=== PATIENT | male | born 1980 | race Hispanic/Latino ===

== ENCOUNTER → 2018-12-10 | Outpatient (CLI) | payer OTHER ==
[2018-12-10 12:52] LABS: INR 1.02; PROTHROMBIN TIME 13.5 SECONDS (12.1-14.4)
[2018-12-10 12:53] LABS: PARTIAL THROMBOPLASTIN TIME 27.2 SECONDS (25.4-37.6)
== END ==
LOC: M LAB 12:05
PROVIDERS: ATTEND Physician Assistant
DX: Z01.812 Encounter for preprocedural laboratory examination (principal)

== ENCOUNTER → 2019-11-15 | Outpatient (CLI) | payer OTHER | LOC: M LABSMTC 10:57 | PROVIDERS: ATTEND Physical Medicine & Rehabilitation | DX: Z03.818 Encounter for observation for suspected exposure to other biological agents ruled out (principal); Z11.59 Encounter for screening for other viral diseases ==

== ENCOUNTER → 2020-08-28 | Outpatient (CLI) | payer OTHER ==
--- NOTE | 2020-09-03 13:24 | ECHO ---
DATE OF PROCEDURE: 08/28/2020 Age: 39 Gender: Male Height: 178 cm Weight: 104 kg REFERRING PHYSICIAN: Travis Watts M.D. INDICATION: Ventricular premature depolarizations. MEASUREMENTS: 2D Measurements: Intraventricular septum 0.82 cm Posterior wall 1.06 cm Left ventricle diastole 5.2 cm Aortic root 3.0 cm Left atrium 4.3 cm Left atrial volume index 21 cm Inferior vena cava 1.7 cm with normal respiratory variation Doppler Measurements: No aortic stenosis No aortic regurgitation Aortic valve velocity 121 cm/s LVOT velocity 88.0 cm/s No mitral regurgitation No mitral stenosis Mitral E velocity 73.5 cm/s Mitral A velocity 41.5 cm/s Mitral deceleration time 160 msec Trace tricuspid regurgitation No pulmonic regurgitation Pulmonary artery acceleration time 160 msec MITRAL ANNULAR TISSUE DOPPLER E prime septal 10.2 cm/s, E prime lateral 12.3 cm/s DESCRIPTION: Observed rhythm was sinus rhythm and sinus bradycardia. Image quality was fair. No pericardial effusion. This was a 2D, M-mode, color flow Doppler, and pulsed wave Doppler examination including mitral annular tissue Doppler. No pericardial effusion. CONCLUSIONS: 1. Normal left ventricle internal dimensions and wall thickness. Normal regional LV wall motion and wall thickening. Normal LV systolic function. LVEF 65% by visual estimate. Normal LV diastolic function. 2. Mild mitral annular calcification. No mitral regurgitation. 3. Otherwise normal appearing echocardiogram Doppler findings. MTDD
== END ==
LOC: M CARPUL 10:18
PROVIDERS: ATTEND Internal Medicine
DX: I49.3 Ventricular premature depolarization (principal)

== ENCOUNTER 2022-10-20 14:01 | Emergency (ER) | payer OTHER ==
[~2022-10-20] VITALS: Ht 177.8 cm; Wt 113.7 kg
[2022-10-20] MEDS ORDERED: VENL75CA47 (14:14)
[2022-10-20] MEDS ORDERED: NAPR-885 (14:14)
[2022-10-20] MEDS ORDERED: LOPI600T (14:14)
[2022-10-20] MEDS ORDERED: ZOLP10TA2 (14:14)
[2022-10-20] MEDS ORDERED: PRAZ2CAP (14:14)
[2022-10-20] MEDS ORDERED: METH-1164 (14:14)
[2022-10-20] MEDS ORDERED: LIDO5OIN19 TOP (17:38)
[2022-10-20] MEDS ORDERED: VALA1TAB5 PO (17:38)
[2022-10-20] MEDS ORDERED: HYDR-3713 PO (17:38)
[2022-10-20] MEDS ORDERED: PRED10TA2 PO (17:40)
[2022-10-20] MEDS ORDERED: VENTAER INH (18:33)
[2022-10-20] MEDS ORDERED: AZIT-12 PO (18:33)
[2022-10-20 18:45] VITALS: BP 148/90
== END 2022-10-20 18:48 | disposition home or self-care (01) ==
LOC: M ED 14:01
DX: J20.9 Acute bronchitis, unspecified (principal); E78.5 Hyperlipidemia, unspecified; M54.9 Dorsalgia, unspecified; F32.A Depression, unspecified; Z79.899 Other long term (current) drug therapy